=== PATIENT | female | born 1995 | race Caucasian/White ===

== ENCOUNTER 2016-03-07 02:30 | Emergency (ER) | payer MEDICAID ==
[2016-03-07 02:51] VITALS: TEMP 97.5; BMI 20.9
[2016-03-07] MEDS ORDERED: Famotidine 20 mg/50 ml RTU 20 MG/50 ML IVB IV ONE (02:53)
[2016-03-07] MEDS ORDERED: ONDANSETRON HCL 4 MG/2 ML VIAL IV ONE (02:53)
[2016-03-07] MEDS ORDERED: GI COCKTAIL 30 ML DOSE PO ONE (02:53)
[2016-03-07] MEDS ORDERED: NS 1,000 ML IV ONE (02:53)
[2016-03-07] MEDS ORDERED: MORPHINE 4 MG/ML INJECTION IV ONE ×2 (02:53→05:07)
--- NOTE | 2016-03-07 02:56 | EDPRACDOC ---
- General Information Information Source: Patient Mode Of Arrival: Car - History of Present Illness Onset: 1030pm Pain Location: Reports: Diffuse Pain Context: Reports: After Eating Pain Severity: Severe Pain Quality: Reports: Burning, Sharp Pain Radiation: Reports: Back (BILATERAL) Last Menstrual Period: on now : No Adult Abdominal History: Reports: Similar Pain (dx) Female Abdominal History: Reports: UTI (HX OF - URETHRAL DILATION AT 5 YRS OLD) Modifying Factors: improves with: Nothing Female Associated Signs & Symptoms: Reports: Nausea, Vomiting, Diarrhea <Edna Ferrer - Last Filed: 03/07/16 02:53> <John Leong - Last Filed: 03/07/16 05:04> - General Information Chief Complaint: Abdominal Pain Stated Complaint: ABDOMINAL PAIN, VOMITING & DIARRHEA Time Seen by Provider: 03/07/16 02:41 Home Medications: Home Medications Ondansetron HCl [Zofran] 4 mg PO Q6H PRN #20 tab 10/20/13 Esomeprazole Mag Trihydrate [Nexium] 40 mg PO DAILY 10/29/13 Cetirizine HCl [Zyrtec] 10 mg PO DAILY 12/09/13 Multivitamin [Daily Vitamin] 1 each PO DAILY 12/09/13 Tretinoin [Retin-A] 15 gm TP DAILY 12/09/13 Hydrocodone Bit/Acetaminophen [[place] 5-325 Tablet] 1 each PO Q4H #10 tab Ondansetron HCl [Zofran] 4 mg PO Q6H PRN #20 tab 03/07/16 Ranitidine HCl [Zantac] 300 mg PO DAILY #30 tablet 03/07/16 Allergies/Adverse Reactions: Allergies Allergy/AdvReac Type Severity Reaction Status Date / Time No Known Allergies Allergy Verified 12/10/13 14:42 - History of Present Illness HPI: PT PRESENTS TODAY WITH N/V/D AND DIFFUSE ABD PAIN AFTER EATING EARLIER TONIGHT. STATES SHE HAS PMH OF GASTRITIS AND THIS FEELS THE SAME. STATES N/V/D X 6 FOR BOTH. NO BLOOD. NO OTHER PMH/MEDS/SBI. (Edna Ferrer) ED Past Medical History - History Reviewed Yes Nurses notes reviewed and agree except as marked - Patient Medical History Respiratory History: Denies: Pneumonia GI/ History: Reports: Urinary Tract Infection (HX OF - URETHRAL DILATION AT 5 YRS OLD), Gastroesophageal Reflux Musculoskeletal History: Denies: Arthritis Psychological History: Reports: Depression, Anxiety (SEPARATION ANXIETY DX AT 11 YRS OLD) Systemic History: Denies: Cancer Additional Past Medical History: CHRONIC ABDOMINAL PAIN Surgical History: Denies: Hysterectomy - Family Medical History Reports: Hypertension (GRANDFATHER), Diabetes (GRANDFATHER), Cancer (GRANDMOTHER - BRAIN, "CHEST"; UNCLE-ESOPHAGEAL), Cardiac Disorders (GRANDFATHER). Denies: Stroke - Social Medical History Smoking Status: Never smoker <Edna Ferrer - Last Filed: 03/07/16 02:53> EDM Review of Systems - Review of Systems ROS Negative Except as Marked: Yes All systems reviewed and were negative except as marked Constitutional: No Symptoms Reported Respiratory: No Symptoms Reported Cardiovascular: No Symptoms Reported Gastrointestinal: Diarrhea, Nausea, Pain, Vomiting Genitourinary: No Symptoms Reported Neurological: No Symptoms Reported Musculoskeletal: No Symptoms Reported Integumentary: No Symptoms Reported <Edna Ferrer - Last Filed: 03/07/16 02:53> - Physical Exam Constitutional: Alert, Distress Oriented to: Time, Person, Place - HEENT Head: Normal Eye Exam: Normal Neck: Normal, Denies Pain, Midline - Respiratory/Cardiovascular Respiratory: Normal - CTA Cardiovascular: Normal - GI Palpation: Normal Tenderness: Diffuse, Severe - Musculoskeletal Back: Normal Extremities: Normal - Integumentary Skin: Normal Lymphatics: Normal - Neurologic Cerebellar: Normal Mood Description: Normal Thought: Coherent Perception: Normal <Edna Ferrer - Last Filed: 03/07/16 02:53> - Results 03/07/16 03:09 03/07/16 03:09 <John Leong - Last Filed: 03/07/16 05:04> - Results WBC 14.6 xk/uL (3.8-10.8) H 03/07/16 03:09 RBC 4.98 xM/uL (4.20-5.40) 03/07/16 03:09 Hgb 15.2 g/dL (12.0-16.0) 03/07/16 03:09 Hct 45.7 % (36-47) 03/07/16 03:09 MCV 92 fL (81-99) 03/07/16 03:09 MCH 30.5 pg (27-32) 03/07/16 03:09 MCHC 33.2 g/dl (33-36) 03/07/16 03:09 RDW 14.1 % (11.5-14.5) 03/07/16 03:09 Plt Count 239 xk/uL (130-400) 03/07/16 03:09 MPV 8.4 fL (7.4-10.4) 03/07/16 03:09 Neut % (Auto) 85.7 % (45-76) H 03/07/16 03:09 Lymph % (Auto) 7.5 % (17-44) L 03/07/16 03:09 [place] % (Auto) 6.1 % (3-10) 03/07/16 03:09 Eos % (Auto) 0.5 % (0-5) 03/07/16 03:09 Baso % (Auto) 0.2 % (0-2) 03/07/16 03:09 Absolute Neuts (auto) 12.41 xk/uL (1.7-8.2) H 03/07/16 03:09 Absolute Lymphs (auto) 1.02 xk/uL (0.65-4.75) 03/07/16 03:09 Sodium 142 mEq/L (137-146) 03/07/16 03:09 Potassium 3.8 mEq/L (3.5-5.1) 03/07/16 03:09 Chloride 106 mEq/L (98-107) 03/07/16 03:09 Carbon Dioxide 22 mMOL/L (22-33) 03/07/16 03:09 Anion Gap 18 mEq/L (8-16) H 03/07/16 03:09 BUN 11 MG/DL (7-17) 03/07/16 03:09 Creatinine 0.60 MG/DL (0.52-1.04) 03/07/16 03:09 Estimated GFR (MDRD) > 60 mL/min (>=60) 03/07/16 03:09 Glucose 109 MG/DL (70-99) H 03/07/16 03:09 Calculated Osmolality 273 MOs/Kg (270-290) 03/07/16 03:09 Calcium 9.6 MG/DL (8.4-10.2) 03/07/16 03:09 Total Bilirubin 0.6 MG/DL (0.2-1.3) 03/07/16 03:09 AST 29 IU/L (14-36) 03/07/16 03:09 ALT 35 IU/L (9-52) 03/07/16 03:09 Alkaline Phosphatase 60 IU/L (38-126) 03/07/16 03:09 Total Protein 8.0 G/DL (6.3-8.2) 03/07/16 03:09 Albumin 4.9 G/DL (3.5-5.0) 03/07/16 03:09 Lipase 45 U/L (23-300) 03/07/16 03:09 Urine Color Yellow 03/07/16 04:27 Urine Clarity Hazy 03/07/16 04:27 Urine pH 5.0 (5.0-8.0) 03/07/16 04:27 Ur Specific [place] 1.035 03/07/16 04:27 Urine Protein Trace (NEG/TRACE) 03/07/16 04:27 Urine Glucose (UA) Neg (NEGATIVE) 03/07/16 04:27 Urine Ketones Neg (NEGATIVE) 03/07/16 04:27 Urine Occult Blood 3+ (NEG/TRACE) H 03/07/16 04:27 Urine Nitrite Neg (NEGATIVE) 03/07/16 04:27 Urine Bilirubin Neg (NEGATIVE) 03/07/16 04:27 Urine Urobilinogen 0.2 MG/DL (0-1) 03/07/16 04:27 Ur Leukocyte Esterase Neg (NEGATIVE) 03/07/16 04:27 Urine RBC 2-5 (0-5) 03/07/16 04:27 Urine WBC 2-5 (0-5) 03/07/16 04:27 Ur Epithelial Cells 2+ 03/07/16 04:27 Urine Bacteria 1+ (NEG/FEW) H 03/07/16 04:27 Urine Mucus Large (NEG/OCC) 03/07/16 04:27 Urine Test Neg (NEGATIVE) 03/07/16 04:27 Urine Opiates Screen *positive* (NEGATIVE) H 03/07/16 04:27 Ur Oxycodone Screen Neg (NEGATIVE) 03/07/16 04:27 Urine Methadone Screen Neg (NEGATIVE) 03/07/16 04:27 Ur Barbiturates Screen Neg (NEGATIVE) 03/07/16 04:27 Ur Tricyclics Screen Neg (NEGATIVE) 03/07/16 04:27 Ur Phencyclidine Scrn Neg (NEGATIVE) 03/07/16 04:27 Ur Amphetamines Screen Neg (NEGATIVE) 03/07/16 04:27 U Methamphetamines Scrn Neg (NEGATIVE) 03/07/16 04:27 Urine MDMA Screen Neg (NEGATIVE) 03/07/16 04:27 U Benzodiazepines Scrn Neg (NEGATIVE) 03/07/16 04:27 Urine Cocaine Screen Neg (NEGATIVE) 03/07/16 04:27 Ur THC Screen *positive* (NEGATIVE) H 03/07/16 04:27 Lab Results 03/07/16 03/07/16 03/07/16 04:27 04:27 04:27 WBC RBC Hgb Hct MCV MCH MCHC RDW Plt Count MPV Neut % (Auto) Lymph % (Auto) [place] % (Auto) Eos % (Auto) Baso % (Auto) Absolute Neuts (auto) Absolute Lymphs (auto) Sodium Potassium Chloride Carbon Dioxide Anion Gap BUN Creatinine Estimated GFR (MDRD) Glucose Calculated Osmolality Calcium Total Bilirubin AST ALT Alkaline Phosphatase Total Protein Albumin Lipase Urine Color Yellow Urine Clarity Hazy Urine pH 5.0 Ur Specific [place] 1.035 Urine Protein Trace Urine Glucose (UA) Neg Urine Ketones Neg Urine Occult Blood 3+ H Urine Nitrite Neg Urine Bilirubin Neg Urine Urobilinogen 0.2 Ur Leukocyte Esterase Neg Urine RBC 2-5 Urine WBC 2-5 Ur Epithelial Cells 2+ Urine Bacteria 1+ H Urine Mucus Large Urine Test Neg Urine Opiates Screen *positive* H Ur Oxycodone Screen Neg Urine Methadone Screen Neg Ur Barbiturates Screen Neg Ur Tricyclics Screen Neg Ur Phencyclidine Scrn Neg Ur Amphetamines Screen Neg U Methamphetamines Scrn Neg Urine MDMA Screen Neg U Benzodiazepines Scrn Neg Urine Cocaine Screen Neg Ur THC Screen *positive* H 03/07/16 03/07/16 03:09 03:09 WBC 14.6 H RBC 4.98 Hgb 15.2 Hct 45.7 MCV 92 MCH 30.5 MCHC 33.2 RDW 14.1 Plt Count 239 MPV 8.4 Neut % (Auto) 85.7 H Lymph % (Auto) 7.5 L [place] % (Auto) 6.1 Eos % (Auto) 0.5 Baso % (Auto) 0.2 Absolute Neuts (auto) 12.41 H Absolute Lymphs (auto) 1.02 Sodium 142 Potassium 3.8 Chloride 106 Carbon Dioxide 22 Anion Gap 18 H BUN 11 Creatinine 0.60 Estimated GFR (MDRD) > 60 Glucose 109 H Calculated Osmolality 273 Calcium 9.6 Total Bilirubin 0.6 AST 29 ALT 35 Alkaline Phosphatase 60 Total Protein 8.0 Albumin 4.9 Lipase 45 Urine Color Urine Clarity Urine pH Ur Specific [place] Urine Protein Urine Glucose (UA) Urine Ketones Urine Occult Blood Urine Nitrite Urine Bilirubin Urine Urobilinogen Ur Leukocyte Esterase Urine RBC Urine WBC Ur Epithelial Cells Urine Bacteria Urine Mucus Urine Test Urine Opiates Screen Ur Oxycodone Screen Urine Methadone Screen Ur Barbiturates Screen Ur Tricyclics Screen Ur Phencyclidine Scrn Ur Amphetamines Screen U Methamphetamines Scrn Urine MDMA Screen U Benzodiazepines Scrn Urine Cocaine Screen Ur THC Screen (John Leong) - Departure Disposition: Home Education/Counseling Given To: Patient, Family Member Education/Counseling Given Regarding: Diagnosis, Treatment, Follow Up <Edna Ferrer - Last Filed: 03/07/16 02:53> Decision Time to Discharge: 05:04 - Departure Disposition: Home <John Leong - Last Filed: 03/07/16 05:04> - Departure Condition: Good Final Diagnosis: Gastritis Instructions: Gastritis (ED), Acute Abdominal Pain (ED) Referrals: None,No Provider [Primary Care Provider] - One Week EB HUITRON [NonStaff] - One Week Pb Murphy MD [Staff Physician] - One Week Prescriptions: New Hydrocodone Bit/Acetaminophen [[place] 5-325 Tablet] 1 each PO Q4H #10 tab Ondansetron HCl [Zofran] 4 mg PO Q6H PRN #20 tab PRN Reason: Nausea/Vomiting Ranitidine HCl [Zantac] 300 mg PO DAILY #30 tablet No Action Ondansetron HCl [Zofran] 4 mg PO Q6H PRN #20 tab PRN Reason: Nausea/Vomiting Esomeprazole Mag Trihydrate [Nexium] 40 mg PO DAILY Cetirizine HCl [Zyrtec] 10 mg PO DAILY Tretinoin [Retin-A] 15 gm TP DAILY Multivitamin [Daily Vitamin] 1 each PO DAILY Additional Instructions: Drink sips of Gatorade every 2-3 minutes while awake. Do NOT drink large volumes of fluid at once. If you vomit, take the nausea-vomiting medicine prescribed, wait ~ 30 minutes, and restart the sipping process. Return to the Emergency Department if you think you are getting dehydrated, have persistent abdominal pain that is unrelenting, have worse or different symptoms, or any concerns.
[2016-03-07 03:25] LABS: AUTOMATED BASOPHIL 0.2 % (0-2); AUTOMATED EOSINOPHIL 0.5 % (0-5); AUTOMATED LYMPH 7.5 % (17-44); AUTOMATED MONOCYTE 6.1 % (3-10); AUTOMATED NEUTROPHIL 85.7 % (45-76); MPV 8.4 fL (7.4-10.4)
[2016-03-07 03:32] LABS: BLOOD UREA NITROGEN 11 MG/DL (7-17); CALCIUM 9.6 MG/DL (8.4-10.2); CALCULATED OSMOLALITY 273 MOs/Kg (270-290); CHLORIDE 106 mEq/L (98-107); GLUCOSE 109 MG/DL (70-99); SODIUM LEVEL 142 mEq/L (137-146)
[2016-03-07 04:32] LABS: ALL NEG? NO
[2016-03-07 04:37] LABS: LEUKOCYTES/URINE NEG (NEGATIVE); MDMA* NEG (NEGATIVE); METHAMPHETAMINES NEG (NEGATIVE); NITRITE/URINE NEG (NEGATIVE); OXYCODONE NEG (NEGATIVE); URINE OCCULT BLOOD 3+ (NEG/TRACE)
[2016-03-07] MEDS ORDERED: DICYCLOMINE 10 MG CAP PO ONE (05:07)
[2016-03-07] MEDS ORDERED: PROMETHAZINE 25 MG/ML VIAL IV ONE (05:07)
[2016-03-07 06:24] VITALS: BP 131/61; PULSE 85
== END 2016-03-07 06:27 | disposition home or self-care (01) ==
LOC: ED 02:30
DX: K29.70 Gastritis, unspecified, without bleeding (principal)
CPT/HCPCS: 36415; 80053; 80307; 81001; 81025; 83690; 85025; 96361; 96365; 96375; 96376; 99284; J2270; J2405; J2550; J3490; S0028